=== PATIENT | male | born 1985 | race Two or more races ===

== ENCOUNTER 2020-05-01 09:23 | Emergency (ER) | payer OTHER ==
[~2020-05-01] VITALS: Ht 175.3 cm; Wt 94.5 kg
[2020-05-01] MEDS ORDERED: ONDANSETRON ODT8 MG PO ×2 (10:19→10:57)
[2020-05-01] MEDS ORDERED: DICYCLOMINE HCL20 MG PO ×2 (10:19→10:56)
[2020-05-01] MEDS ORDERED: PEPCID20 MG PO (10:19)
[2020-05-01] MEDS ORDERED: PANTOPRAZOLE SO40 MG PO (10:58)
[2020-05-01 11:27] VITALS: BP 122/71
== END 2020-05-01 11:26 | disposition home or self-care (01) ==
LOC: FSED 09:36
DX: R10.13 Epigastric pain (principal); R11.2 Nausea with vomiting, unspecified; K29.70 Gastritis, unspecified, without bleeding; M54.6 Pain in thoracic spine; R63.4 Abnormal weight loss; F17.210 Nicotine dependence, cigarettes, uncomplicated
CPT/HCPCS: 80048; 80076; 81003; 85025; 99283